=== PATIENT | female | born 1940 | race Caucasian/White ===

== ENCOUNTER 2019-01-07 07:13 | Outpatient (CLI) | payer OTHER ==
[~2019-01-07 07:13] MED LIST: DURICEF 500 MG CAPSULE PO; TRAM1TAB98 PO
== END 2019-01-07 07:16 | disposition home or self-care (01) ==
LOC: SONOGRAMA 07:13
DX: E04.1 Nontoxic single thyroid nodule (principal)

== ENCOUNTER 2020-10-09 10:26 | Outpatient (CLI) | payer OTHER | END 2020-10-09 10:36 | disposition home or self-care (01) | LOC: MAMO-SONO 10:26 | PROVIDERS: ATTEND Internal Medicine Cardiovascular Disease | DX: N63.11 Unspecified lump in the right breast, upper outer quadrant (principal) ==

== ENCOUNTER 2020-10-27 13:04 | Outpatient (CLI) | payer OTHER | END 2020-10-27 13:07 | disposition home or self-care (01) | LOC: NUCLEAR 13:04 | PROVIDERS: ATTEND Internal Medicine Cardiovascular Disease | DX: M81.0 Age-related osteoporosis without current pathological fracture (principal); E55.9 Vitamin D deficiency, unspecified ==

== ENCOUNTER 2023-11-06 10:28 | Outpatient (CLI) | payer OTHER | END 2023-11-06 10:31 | disposition home or self-care (01) | LOC: SONOGRAMA 10:28 | PROVIDERS: ATTEND Pathology Anatomic Pathology & Clinical Pathology | DX: D34 Benign neoplasm of thyroid gland (principal); E07.89 Other specified disorders of thyroid; E04.1 Nontoxic single thyroid nodule ==